=== PATIENT | male | born 2005 | race Caucasian/White ===

== ENCOUNTER 2025-01-29 18:27 | Emergency (ER) | payer OTHER, SELFPAY ==
[2025-01-29 18:31] VITALS: BP 133/59; PULSE 91; RESP 16; TEMP 37.3; O2SAT 98; BMI 29.4
--- NOTE | 2025-01-29 18:42 | ED_ITS ---
HPI - URI/Sore Throat General Chief Complaint: Upper Respiratory Symptoms Stated Complaint: difficulty speaking and swallowing; swollen tonsil Time Seen by Provider: 01/29/25 18:56 Source: patient Mode of arrival: ambulatory Limitations: no limitations History of Present Illness ED Provider: adam prajapati NP HPI Narrative: Patient is a 19-year-old male who presents emergency department for evaluation of sore throat, swallowing, cough, generally fatigued. Onset of symptoms 3 days ago. denies known sick contacts. Denies fevers, chills, headache, dizziness, neck pain, neck stiffness, chest pain, shortness of breath, difficulty breathing, nausea, vomiting, abdominal pain, numbness or tingling of the extremities, genitourinary symptoms. Related Data Previous Rx's ?Medication ?Instructions ?Recorded amoxicillin 500 mg tablet 500 mg PO BID #19 tabs 01/29/25 Allergies Allergy/AdvReac Type Severity Reaction Status Date / Time No Known Allergies Allergy Verified 01/29/25 18:33 Review of Systems Review of Systems: Yes all other systems are reviewed and are negative [facility] Past Medical History Attestation statement: The following information was validated with the patient. Source: old records reviewed Social History Social History Smoked in Last 30 Days: No Use of substances other than those prescribed or required for medical reasons: No Advance Directives: No Advance Directives Information Provided: No Do you have a plan to hurt others: No Plan Physical Exam Vital Signs: Vital Signs: Last Vital Signs Temp 99.1 F 01/29/25 18:31 Pulse 87 01/29/25 19:06 Resp 16 01/29/25 18:31 BP 133/59 L 01/29/25 18:31 Pulse Ox 97 01/29/25 19:10 O2 Del Method Room Air 01/29/25 19:10 BMI result Body Mass Index 29.4 Appearance: Alert.?Oriented to person, place and time. No acute distress.?Normal affect. Eyes: Pupils equal, round and reactive to light.? ENT: TM normal bilaterally. Pharynx is erythematous with tonsillar hypertrophy 3+ bilaterally. Uvula midline. No trismus. No drooling. No palatal petechiae Neck: Normal inspection.? Neck supple.??No cervical adenopathy CVS: Heart sounds normal. Normal heart rate and rhythm.? Pulses normal.?? Respiratory: No respiratory distress.? Lung sounds clear to auscultation bilaterally?? Abdomen: Soft and non-tender. Normoactive bowel sounds. Skin: Skin warm and dry.? Normal skin color.? ? Extremities: No lower extremity edema.? Neuro: Moves all extremities spontaneously. Sensation intact bilaterally. No motor deficits. Ambulates with normal steady gait. Medical Decision Making Medical Decision Making [facility] Narrative: Patient is a 19-year-old male presenting for evaluation of sore throat and, generalized fatigue. COVID-19 /influenza/RSV testing is negative. Group a strep testing is positive, examination not consistent with RPA/ [employer]. Received single dose dexamethasone in the ED due to tonsilar hypertrophy. At this time history and physical exam not consistent with pneumonia. Well-appearing, nontoxic, afebrile, no tachycardia or tachypnea/hypoxia. Speaking clear full sentences, ambulatory with steady gait. sent prescription for antibiotic to pharmacy, Received first dose in the emergency department this evening. Discussed conservative treatment including rest, hydration, Tylenol/ibuprofen as needed for fever and body aches, saline nasal spray, humidifier, [id number] cold medication. Advised to follow-up with primary care provider as needed, discussed reasons to return back to the emergency department. All questions were answered. Patient discharged home in stable condition. Differential Diagnosis Differential Diagnoses: The differential diagnosis associated with the presentation includes ( See narrative above) Admission/Observation Consideration of admission/observation: Escalation of care including admission/observation considered ( see narrative above) Lab Data [facility] Lab Attestation statement: I reviewed the patient's lab results. ( see narrative above) Labs: Lab Results 01/29/25 Range/Units 18:40 Influenza Type A (PCR) NEGATIVE (Negative) Influenza Type B (PCR) NEGATIVE (Negative) RSV RNA Qual (PCR) NEGATIVE (Negative) SARS-CoV-2 RNA (RT-PCR) NEGATIVE (Negative) S. pyogenes GrpA CHARLES Positive A (Negative) Prescription Management I considered prescription management with: Pain Medication ( acetaminophen/ibuprofen) Discharge Plan Discharge Clinical Impression: Acute streptococcal pharyngitis Patient Disposition: Home, Self-Care Instructions: Strep Throat (ED) Additional Instructions: you received a single dose of steroids in the emergency department; dexamethasone to help with the swelling and pain. You also received the first dose of antibiotic while in the emergency department, brain picker your prescription from the pharmacy so that you may begin taking tomorrow twice daily for a total of 10 days. Follow-up with primary care doctor. Return with any new or worsening symptoms or concerns. You can take ibuprofen 200 mg, 3 tablets (600mg) every 6-8 hours as needed for pain, in addition to Tylenol 500 mg, 2 tablets (1,000mg) every 4-6 hours as needed for pain, but not to exceed 3 doses daily (3,000mg).? Warm salt water gargles and throat lozenges may be helpful for symptoms as well. Prescriptions: New amoxicillin 500 mg tablet 500 mg PO BID Qty: 19 0RF Referrals: Physician,Unknown J [Primary Care Provider] - Print Language: Khmer
[2025-01-29 18:51] LABS: IDNOW Serial# 58CA691E; Strep A Nucleic Acid Positive (Negative)
[2025-01-29 19:06] VITALS: PULSE 87; O2SAT 97
[2025-01-29 19:10] VITALS: O2SAT 97
[2025-01-29 19:24] LABS: Influenza A PCR NEGATIVE (Negative); Influenza B PCR NEGATIVE (Negative); Resp Syncy Virus RNA Qual PCR NEGATIVE (Negative); SARS COV2 PCR INHOUSE NEGATIVE (Negative)
[2025-01-29] MEDS: dexAMETHasone sod phosphate 10 MG/ML VIAL PO (19:34)
[2025-01-29] MEDS: Amoxicillin 500 MG CAPSULE PO (19:34)
[2025-01-29 19:47] VITALS: BP 108/52; PULSE 73; RESP 19; TEMP 36.7; O2SAT 98
== END 2025-01-29 19:49 | disposition home or self-care (01) ==
PROVIDERS: Emergency Provider Emergency Medicine
DX: J02.0 Streptococcal pharyngitis (principal); R05.9 Cough, unspecified; R53.83 Other fatigue; Z03.818 Encounter for observation for suspected exposure to other biological agents ruled out
CPT/HCPCS: 0241U; 87651; 99283; 99284; J1100